=== PATIENT | male | born 2000 | race Hispanic/Latino ===

== ENCOUNTER 2022-01-07 19:41 | Emergency (ER) | payer OTHER | END 2022-01-07 21:46 | disposition home or self-care (01) | LOC: ERS 19:41 | DX: S33.5XXA Sprain of ligaments of lumbar spine, initial encounter (principal); S06.0X0A Concussion without loss of consciousness, initial encounter; V89.2XXA Person injured in unspecified motor-vehicle accident, traffic, initial encounter | CPT/HCPCS: 70450; 72125; 72131 ==